=== PATIENT | female | born 1995 | race Hispanic/Latino ===

== ENCOUNTER 2022-01-09 15:48 | Emergency (ER) | payer OTHER ==
[2022-01-09] MEDS ORDERED: Famotidine 20 MG TAB ONE (19:09)
[2022-01-09 19:18] LABS: Bilirubin Neg (Negative); Blood, Urine Negative (Negative); Clarity Clear (Clear); Glucose, Urine (Dipstick) Normal (Negative); Ketone, Urine Negative (Negative); Leukocyte 25 (Negative); Nitrite Negative (Negative); Protein, Urine (Dipstick) Negative (Neg-Trace); Urobilinogen Normal mg/dL (Less than 2)
[2022-01-09 19:22] LABS: #Eosinphils 0.1 10x3/uL (0.0-0.5); #Monocytes 0.6 10x3/uL (0.0-1.1); #Neutrophils 4.9 10x3/uL (1.5-8.4); %Basophils 0.1 % (0.0-2.0); %Eosinophils 1.1 % (0.0-6.0); %Lymphocytes 20.3 % (18.0-47.0); %Monocytes 8.6 % (0.0-10.0); %Neutrophils 69.8 % (40.0-75.0); Hemoglobin 10.3 g/dL (12.0-15.5); Mean Corpuscular HGB CONC 33.6 g/dL (32.0-36.0); Mean Corpuscular Hemoglobin 30.8 pg (27.0-33.0); Mean Corpuscular Volume 91.9 fl (81.6-98.3); Mean Platelet Volume 11.4 fl (7.4-10.4); Platelet Count 205 10x3/uL (150-450); RBC Distribution Width 12.7 % (11.5-14.5); Red Blood Cell (RBC) Count 3.34 10x6/uL (3.90-5.03); White Blood Cell (WBC) Count 7.1 10x3/uL (3.5-10.5)
[2022-01-09 19:27] LABS: Bacteria/HPF Rare-Few HPF (None Seen); RBC/HPF None Seen HPF (0-3); WBC/HPF 0-3 HPF (0-3); Yeast-Budding Rare HPF (None Seen)
[2022-01-09 19:28] LABS: ALT (SGPT) 24 U/L (8-55); AST (SGOT) 21 U/L (5-34); Albumin 3.5 g/dL (3.5-5.0); Alkaline Phosphatase 69 U/L (40-110); Anion Gap 12 mmol/L (10-20); BUN (Urea Nitrogen) 8 mg/dL (7.0-18.7); Bilirubin, Total 0.3 mg/dL (0.2-1.2); Calc. Creatinine Clearance 0 mL/min (70-130); Calcium 8.7 mg/dL (7.8-10.44); Carbon Dioxide 22 mmol/L (22-29); Chloride 106 mmol/L (98-107); Globulin 3.1 g/dL (2.4-3.5); Glucose 87 mg/dL (70-105); Lipase 35 U/L (8-78); Potassium 3.5 mmol/L (3.5-5.1); Protein, Total 6.6 g/dL (6.0-8.3); Sodium 136 mmol/L (136-145)
== END 2022-01-09 20:15 | disposition home or self-care (01) ==
LOC: CSHERS 15:48
DX: O99.612 Diseases of the digestive system complicating pregnancy, second trimester (principal); K21.9 Gastro-esophageal reflux disease without esophagitis; O99.332 Smoking (tobacco) complicating pregnancy, second trimester; F17.210 Nicotine dependence, cigarettes, uncomplicated
CPT/HCPCS: 80053; 81003; 81015; 83690; 85025; 99284

== ENCOUNTER 2022-04-21 22:27 | Day surgery (SDC) | payer OTHER ==
[2022-04-21 23:17] VITALS: BMI 31.7
[2022-04-21] MEDS ORDERED: hydrALAZINE 20 MG/ML VIAL SLOW IVP PRN (23:48)
== END 2022-04-22 02:31 | disposition home or self-care (01) ==
LOC: CSHLD/OP 22:27
PROVIDERS: ATTEND Obstetrics & Gynecology
DX: O47.1 False labor at or after 37 completed weeks of gestation (principal); Z3A.38 38 weeks gestation of pregnancy; O99.013 Anemia complicating pregnancy, third trimester; D64.9 Anemia, unspecified; O98.413 Viral hepatitis complicating pregnancy, third trimester; B18.1 Chronic viral hepatitis B without delta-agent; O99.613 Diseases of the digestive system complicating pregnancy, third trimester; K21.9 Gastro-esophageal reflux disease without esophagitis; K59.00 Constipation, unspecified; O98.313 Other infections with a predominantly sexual mode of transmission complicating pregnancy, third trimester; A63.0 Anogenital (venereal) warts; Z79.899 Other long term (current) drug therapy
CPT/HCPCS: 99283

== ENCOUNTER 2022-04-22 12:25 | Inpatient (IN) | payer MEDICAID, OTHER, SELFPAY ==
[~2022-04-22 12:25] MED LIST: Bupivacaine/Epinephrine 0.25% 30 ML VIAL ONE
[2022-04-22] MEDS ORDERED: Ibuprofen 800 MG TAB PO PRN (13:12)
[2022-04-22] MEDS ORDERED: Lidocaine 1% (PF) 30 ML VIAL SC PRN (13:12)
[2022-04-22] MEDS ORDERED: Promethazine HCl 25 MG/ML VIAL IM PRN ×2 (13:12→15:10)
[2022-04-22] MEDS ORDERED: Misoprostol 200 MCG TAB PR PRN (13:12)
[2022-04-22] MEDS ORDERED: Ondansetron PF 4 MG/2 ML Vial IVP PRN ×2 (13:12→15:10)
[2022-04-22] MEDS ORDERED: Butorphanol Tartrate 1 MG/ML VIAL SLOW IVP PRN (13:12)
[2022-04-22] MEDS ORDERED: Acetaminophen 500 MG TAB PO PRN (13:12)
[2022-04-22] MEDS ORDERED: hydrALAZINE 20 MG/ML VIAL SLOW IVP PRN (13:12)
[2022-04-22] MEDS ORDERED: NS w/ Oxytocin 30 units 500 ML IV SCH ×2 (13:15)
[2022-04-22 13:24] VITALS: BMI 28.8
[2022-04-22] MEDS ORDERED: Fentanyl 2 mcg/Bup 0.1% Cadd 100 ML ONE (13:46)
[2022-04-22 13:48] LABS: Hemoglobin 11.7 g/dL (12.0-15.5); Mean Corpuscular HGB CONC 33.7 g/dL (32.0-36.0); Mean Corpuscular Hemoglobin 30.6 pg (27.0-33.0); Mean Corpuscular Volume 90.8 fl (81.6-98.3); Mean Platelet Volume 12.9 fl (7.4-10.4); Platelet Count 197 10x3/uL (150-450); RBC Distribution Width 13.5 % (11.5-14.5); Red Blood Cell (RBC) Count 3.82 10x6/uL (3.90-5.03); White Blood Cell (WBC) Count 11.6 10x3/uL (3.5-10.5)
[2022-04-22] MEDS: Lactated Ringer's 1,000 ML IV SCH ×3 (14:25→16:05)
[2022-04-22 14:41] LABS: Hep B Surf Ag R S/CO (NonReactive)
[2022-04-22 14:42] LABS: Syphilis Antibody Nonreactive (Nonreactive); Syphilis Antibody Index 0.07 S/CO (<1.00 Non-Reactive)
[2022-04-22] MEDS: ePHEDrine Sulfate 50 MG/10 ML VIAL SLOW IVP PRN ×4 (14:58→15:10)
[2022-04-22] MEDS ORDERED: Acetaminophen 325 MG TAB PO PRN (15:10)
[2022-04-22] MEDS ORDERED: Lactated Ringer's 500 ML IV PRN (15:10)
[2022-04-22] MEDS ORDERED: diphenhydrAMINE 50 MG/ML VIAL IVP PRN (15:10)
[2022-04-22] MEDS ORDERED: Naloxone HCl 0.4 mg/ml Vial IVP PRN ×2 (15:10)
[2022-04-22] MEDS ORDERED: Moisturizing Cream (Eucerin) 113 GM JAR TOP PRN (15:10)
[2022-04-22] MEDS ORDERED: Fentanyl 2 mcg/Bupivacaine 0.1% Cassette 100 ML EPIDURAL SCH (15:15)
[2022-04-22] MEDS ORDERED: Communication Order-Pharmacy FS SCH (15:15)
[2022-04-22] MEDS ORDERED: PHENYLEPHRINE-NS 100 MCG/ML 10 ML SYRINGE ONE (15:17)
[2022-04-22] MEDS ORDERED: ePHEDrine Sulfate 50 MG/10 ML VIAL ONE (15:17)
[2022-04-22 15:24] LABS: HBSAg Index 4392.57 S/CO (0-0.99)
[2022-04-22 16:02] LABS: SARS-CoV-2 NAA Rapid Test Not Detected (NotDetected)
[2022-04-23] MEDS ORDERED: Boostrix 0.5 ML (Tdap) VIAL (>/=7 yrs of age) IM ONE (01:37)
[2022-04-23] MEDS ORDERED: Bisacodyl 10 MG SUPP PR PRN (01:37)
[2022-04-23] MEDS ORDERED: Milk Of Magnesia 30 ML UDCUP PO PRN (01:37)
[2022-04-23] MEDS ORDERED: Docusate 100 MG CAP PO SCH (01:45)
[2022-04-23] MEDS: Ibuprofen 800 MG TAB PO SCH ×3 (05:59→21:43)
[2022-04-23] MEDS: Acetaminophen 325 MG TAB PO SCH ×3 (06:25→19:33)
[2022-04-23] MEDS ORDERED: Ferrous Sulfate 325 MG TAB PO SCH (08:00)
[2022-04-23] MEDS: Docusate 100 MG CAP PO SCH ×2 (08:56→21:43)
[2022-04-23] MEDS: Ferrous Sulfate 325 MG TAB PO SCH (08:57)
[2022-04-23] MEDS: Preparation H Ointment 28 GM TUBE TOP SCH ×3 (08:57→21:43)
[2022-04-24] MEDS: Acetaminophen 325 MG TAB PO SCH ×3 (00:27→12:00)
[2022-04-24] MEDS: Ibuprofen 800 MG TAB PO SCH (05:30)
[2022-04-24] MEDS: Ferrous Sulfate 325 MG TAB PO SCH (08:07)
[2022-04-24] MEDS: Docusate 100 MG CAP PO SCH (08:08)
[2022-04-24 08:17] VITALS: BP 113/66; TEMP 97.8
[2022-04-24] MEDS: Preparation H Ointment 28 GM TUBE TOP SCH (08:19)
== END 2022-04-24 12:30 | disposition home or self-care (01) | DRG 806 ==
LOC: CSHLD/OP 12:25 → CSHLD 13:03 → CSHPP 04-23 01:00
PROVIDERS: ADMIT Obstetrics & Gynecology; ATTEND Obstetrics & Gynecology
PROC: 10E0XZZ Delivery of Products of Conception, External Approach (ICD-10-PCS; principal; 2022-04-22)
PROC: 10907ZC Drainage of Amniotic Fluid, Therapeutic from Products of Conception, Via Natural or Artificial Opening (ICD-10-PCS; 2022-04-22)
DX: O99.02 Anemia complicating childbirth (principal); O98.42 Viral hepatitis complicating childbirth; Z37.0 Single live birth; D64.9 Anemia, unspecified; Z20.822 Contact with and (suspected) exposure to COVID-19; Z3A.38 38 weeks gestation of pregnancy; B18.2 Chronic viral hepatitis C
CPT/HCPCS: 36415; 51702; 76815; 85027; 86780; 86850; 86900; 86901; 87340; 99283; 99285; J2590; J7120; U0002